=== PATIENT | male | born 1995 | race African-American/Black ===

== ENCOUNTER 2025-04-01 09:22 | Emergency (ER) | payer MEDICAID ==
[~2025-04-01] VITALS: Ht 134.6 cm; Wt 45.0 kg
[2025-04-01 09:26] VITALS: O2SAT 99
[2025-04-01] MEDS: DEXAMETHASONE 10 MG/ML VIAL PO ONE (10:13)
[2025-04-01 10:50] LABS: BASOPHILS % 0.5 % (0.0-2.0); EOSINOPHILS % 6.1 % (0.0-5.0); HEMATOCRIT. 43.9 % (42.0-52.0); HEMOGLOBIN. 14.6 g/dL (14.0-18.0); LYMPHOCYTES % 28.4 % (20.0-50.0); MEAN PLATELET VOLUME 9.2 fl (7.4-10.4); MONOCYTES % 12.8 % (2.0-8.0); NEUTROPHILS % 52.2 % (40.0-76.0); PLATELET 205 x1000/uL (130-400); RED BLOOD CELL COUNT 5.08 mill/uL (4.7-6.1); RED CELL DISTRIBUTION WIDTH 12.9 % (11.6-14.6)
[2025-04-01 11:03] LABS: CREATININE 1.0 mg/dL (0.6-1.3); UREA NITROGEN BLOOD 9 mg/dL (9-23)
[2025-04-01] MEDS ORDERED: GUAI-450 MT (11:04)
[2025-04-01 11:19] LABS: ASPARTATE AMINOTRANSFERASE 15 IU/L (<34); BILIRUBIN TOTAL 1.7 mg/dL (0.1-1.0); PROTEIN TOTAL 7.2 g/dL (6.0-8.3)
[2025-04-01 14:06] VITALS: BP 130/90; PULSE 66; RESP 14; TEMP 37.1; O2SAT 99
== END 2025-04-01 16:31 | disposition home or self-care (01) ==
LOC: ER 09:22
DX: J06.9 Acute upper respiratory infection, unspecified (principal); R53.1 Weakness; G35 Multiple sclerosis; Z79.899 Other long term (current) drug therapy; Z20.822 Contact with and (suspected) exposure to COVID-19
CPT/HCPCS: 99284; 71045; 87426; 80053; 85025; 36415; J1100